=== PATIENT | female | born 1970 | race Caucasian/White ===

== ENCOUNTER → 2024-10-21 | Outpatient (CLI) | payer MEDICAID, SELFPAY ==
[2024-10-21 17:13] LABS: FOLATES,SERUM (FOLIC ACID) 7.84 ng/mL (4.60-34.80)
[2024-10-21 19:56] LABS: Cholesterol 267 mg/dL (<=200); High Density Lipoprotein 70 mg/dL; Low Density Lipoprotein Calc. -18 mg/dL; Triglycerides 1076 mg/dL; Very Low Density Lipoprotein 215 mg/dL (5-40); cholesterol:hdl ratio screen 3.82
[2024-10-21 19:59] LABS: CRP < 3.00 mg/L (0.0-3.0); Vitamin B12 589 pg/mL (180-914); Vitamin D,25 Hydroxy 59.8 ng/mL (30-100)
== END | disposition home or self-care (01) ==
LOC: BIMLAB 12:08
PROVIDERS: Referring Provider Nurse Practitioner Family; Visit Provider Nurse Practitioner Family
DX: D86.9 Sarcoidosis, unspecified (principal); E83.118 Other hemochromatosis; G89.29 Other chronic pain; R53.82 Chronic fatigue, unspecified; R06.00 Dyspnea, unspecified; R61 Generalized hyperhidrosis; E28.9 Ovarian dysfunction, unspecified; H93.13 Tinnitus, bilateral; F32.A Depression, unspecified; F41.9 Anxiety disorder, unspecified; R41.89 Other symptoms and signs involving cognitive functions and awareness; G47.01 Insomnia due to medical condition; R51.9 Headache, unspecified; E78.49 Other hyperlipidemia
CPT/HCPCS: 36415; 80061; 82306; 82607; 82746; 86140; 86611; 86617

== ENCOUNTER → 2024-12-17 | Outpatient (CLI) | payer MEDICAID, SELFPAY ==
[2024-12-19 05:07] LABS: HOMOCYSTEINE 13.4 umol/L (0.0-14.5)
[2024-12-23 14:08] LABS: Lipoprotein A 9.5 nmol/L (<75.0); Protein C Antigen 124 % (60-150); Protein S, Free 120 % (61-136); Protein S, Funtional 85 % (63-140); Protein S, Total 91 % (60-150); VITAMIN B6 35.8 ug/L (3.4-65.2)
== END | disposition home or self-care (01) ==
LOC: BIMLAB 11:25
PROVIDERS: Visit Provider Nurse Practitioner Family
DX: R06.00 Dyspnea, unspecified (principal); R51.9 Headache, unspecified; G47.01 Insomnia due to medical condition; R41.89 Other symptoms and signs involving cognitive functions and awareness; R61 Generalized hyperhidrosis; R53.82 Chronic fatigue, unspecified; E83.118 Other hemochromatosis; G89.29 Other chronic pain; D86.9 Sarcoidosis, unspecified; E78.5 Hyperlipidemia, unspecified; D68.69 Other thrombophilia; Z13.6 Encounter for screening for cardiovascular disorders
CPT/HCPCS: 36415; 81241; 83090; 83695; 84207; 84425; 85302; 85305; 85306; 86141